=== PATIENT | female | born 1955 | race Caucasian/White ===

== ENCOUNTER → 2024-11-10 06:54 | Outpatient (REF) | payer MEDICARE, OTHER, SELFPAY | LOC: MRI 3T 06:54 | PROVIDERS: ATTENDING PHYSICIAN Physician Assistant | DX: M54.16 Radiculopathy, lumbar region (principal) | CPT/HCPCS: 72148 ==

== ENCOUNTER 2025-02-22 02:20 | Inpatient (IN) | payer MEDICARE, OTHER, SELFPAY ==
[2025-02-21 18:01] VITALS: BP 155/85
[2025-02-21 21:01] LABS: % Basophils 0.5 % (0-2); % Immature Granulocytes 0.6 % (0-0.5); % Lymphocytes 4.2 % (20.5-51.1); % Monocytes 4.6 % (1.7-9.3); % Neutrophils 90.1 % (42.2-75.2); Absolute Basophils 0.1 10^3/uL (0-0.2); Absolute Immature Granulocytes 0.1 10^3/uL (0-0.05); Absolute Lymphocytes 0.4 10^3/uL (1.2-3.4); Absolute Monocytes 0.5 10^3/uL (0.1-0.6); Absolute Neutrophils 9.2 10^3/uL (1.4-6.5); Hematocrit 44.1 % (37.0-47.0); Hemoglobin 14.6 g/dL (12.0-16.0); Mean Corp Hgb Conc. 33.1 g/dL (33.0-37.0); Mean Corpuscular Hgb 30.9 pg (27.0-31.0); Mean Corpuscular Volume 93.2 fL (81.0-99.0); Mean Platelet Volume 9.7 fL (7.4-10.4); Nucleated Red Blood Cells % 0 %; Platelet Count 266 10^3/uL (130-400); Red Blood Cell Count 4.73 10^6/uL (4.20-5.40); Red Cell Dist. Width 12.8 % (11.5-14.5); White Blood Cell Count 10.2 10^3/uL (4.8-10.8)
[2025-02-21 21:08] VITALS: BP 159/78
[2025-02-21 21:09] VITALS: BMI 22.6
[2025-02-21 21:17] LABS: Lactic Acid 1.5 mmol/L (0.7-2.0); Lipase 19 U/L (23-300)
[2025-02-21 21:18] LABS: ALT (SGPT) 26 U/L (0-35); AST (SGOT) 27 U/L (14-36); Albumin 4.8 g/dl (3.5-5.0); Alkaline Phosphatase 111 U/L (38-126); Blood Urea Nitrogen 23 mg/dl (7-17); Calcium 10.1 mg/dl (8.4-10.2); Carbon Dioxide 29 mmol/L (22-30); Chloride 105 mmol/L (98-107); Estimated Creatinine Clearance 60 ml/min; Glucose 133 mg/dl (70-99); Sodium 140 mmol/L (135-145); Total Bilirubin 1.1 mg/dl (0.2-1.3); Total Protein 7.3 g/dl (6.3-8.2); eGFR > 60.00
--- NOTE | 2025-02-21 21:20 | ED.GENMED ---
History of Present Illness
General
Chief Complaint: Abdominal Pain
Source: patient
Exam Limitations: none
Time Seen by Provider: 02/21/25 21:02
Nursing documentation reviewed up to this point in time: agreed with
History of Present Illness
History of Present Illness:
This is a 69-year-old female with past medical history of hypertension, Crohn's disease, who presents emergency department today with concerns of left-sided abdominal pain. Patient reports that she has a history of multiple small bowel obstructions
in the past and reports that this feels very similar. Patient reports that she also had 2 episodes of vomiting as well. Patient reports that she has had around 10 bowel obstructions in the past and they have been due to that adhesions. Patient
denies any pelvic pain, any dysuria or hematuria. Patient denies any fevers or chills. She denies any diarrhea or constipation. She denies any recent travel outside the country. She denies any chest pain or shortness of breath. She denies any
dizziness or lightheadedness. 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 She has noted general surgery here and has had a colon resection in the past.
Past History
Past History
ED Past Medical History: HTN and Other (Crohn's disease)
ED Past Surgical History: Appendectomy, Bowel resection (Small bowel obstruction) and Gynecological (Infertility surgery)
Social History
Tobacco: Non-smoker
Alcohol: None
Personal:
Living: with family
Family History
Family History: Negative Diabetes, Hypertension, Early CAD, Asthma or Cancer
Review of Systems
Review of Systems
All Other Systems: ROS reviewed and negative except as documented in HPI and ROS
Phy Exam
Physical Exam
Physical Exam:
General: Patient is well appearing and in no acute distress; non-toxic
Skin: Warm and dry, no rashes or lesions
Head: Normocephalic, atraumatic
Eyes: Sclera non-icteric. EOMs intact.
Cardiac: Regular rate and rhythm, no murmurs
Peripheral Vascular: No lower extremity swelling or edema
Pulm: Normal respiratory effort, no wheezes, rales, rhonchi
Abdomen: Mild tenderness to palpation in the front of the abdomen with some guarding, no rebound tenderness
Musculoskeletal: Midline lower lumbar tenderness to palpation
Neuro: CN II-XII intact, no focal neurologic deficits.
Psychiatric: Appropriate mood and affect.
Course
Orders/Labs/Results
Orders:
Orders
02/21/25 18:06
Electrocardiogram (*1) Urgent
Reason for Study: Other
Other Reason for Exam: Possible Sepsis
EKG- Treatment ONCE
02/21/25 20:31
Complete Blood Count/With Diff Urgent
Comprehensive Metabolic Panel Urgent
Lactic Acid Stat
Lipase Stat
02/21/25 21:28
0.9% Sodium Chloride 250 ml [Nss] 250 ml IV BOLUS
Ketorolac [Toradol] 15 mg IV NOW STA
Ondansetron Injectable [Zofran] 4 mg IV NOW STA
02/21/25 21:29
CT Abd/pelvis W Iv Cont Urgent
Comment:
Reason For Exam: left sided abdominal pain
02/22/25 01:12
HYDROmorphone [Dilaudid] 0.5 mg IV NOW STA
02/22/25 01:47
Admit/Transfer Patient As Directed
Co-Sign Provider:
Level of Care: Inpatient admission
Assign to:: Medical/Surgical
Physician / Group: Ranjeet
Diagnosis: SBO
Reason for Hospitalization: SBO
Expected length of stay greater than two midnights?: Yes
ELOS- Estimated Length of Stay in days: 2
I certify the patient meets the requirements for IP care: Yes
Code Status As Directed
Resuscitation Status: Full Code
PRN Pain Medication Management As Directed
May give lesser potent ordered pain med per pt: Yes
preference::
Protocol:: Medication orders for pain may be administered in a
manner that supports deferring to patient preference
when the pt is:
- Requesting an ordered lesser potent pain medication.
Least to most potent pain medications are defined
as: acetaminophen < NSAID < tramadol < opioids
(morphine, oxycodone, hydromorphone).
- Requesting a lesser dose of the same medication IF
ORDERED.
- Requesting a less intrusive route of administration
if both routes are prescribed by the provider (PO <
IV).
02/22/25 03:02
0.9% Sodium Chloride 1000 ml [Nss] 1,000 ml IV 80 mls/hr
HYDROmorphone [Dilaudid] 0.5 mg IV Q4HPRN PRN
HydrALAZINE [Apresoline] 5 mg IV Q6HPRN PRN
Ondansetron Injectable [Zofran] 4 mg IV Q6HPRN PRN
02/22/25 03:02
SURGICAL CONSULT Routine
Consulting Provider: Jericho Hansen
Was physician already notified: Yes
Reason for consult: SBO
Activity As Directed
Activity Level: Ambulate
I/O [Intake/ Output] As Directed
Frequency: Per unit guidelines
Pneumatic Compression Sleeves As Directed
Type: Knee high
Vital Signs As Directed
Frequency: Per unit guidelines
Oxygen Therapy [O2 Therapy] [RESP] Routine
Titrate/Wean O2 to maintain O2 sat greater than (%): 94
DX Deep Vein Thrombosis Video Routine
02/22/25 05:48
Basic Metabolic Panel IN AM
Complete Blood Count/No Diff IN AM
02/22/25 Breakfast
NPO
Allow oral meds: Yes
Allow clear liquids: Sips of Clears
02/22/25 08:00
Pantoprazole [Protonix IV] 40 mg IV DAILY
Abnormal Lab Results
02/21/25
20:31
Abs Immat Gran (auto) 0.1 H 10^3/uL
(0-0.05)
Absolute Neuts (auto) 9.2 H 10^3/uL
(1.4-6.5)
Absolute Lymphs (auto) 0.4 L 10^3/uL
(1.2-3.4)
Immature Gran % 0.6 H %
(0-0.5)
Neutrophils % 90.1 H %
(42.2-75.2)
Lymphocytes % 4.2 L %
(20.5-51.1)
BUN 23 H mg/dl
(7-17)
Glucose 133 H mg/dl
(70-99)
Lipase 19 L U/L
(23-300)
02/21/25 20:31
02/21/25 20:31
Vital Signs
Initial and Last Documented VS:
Initial Vital Signs
Temp Pulse Resp BP Pulse Ox
97.9 F 85 18 155/85 98
02/21/25 18:01 02/21/25 18:01 02/21/25 18:01 02/21/25 18:01 02/21/25 18:01
Last Documented Vital Signs
Temp Pulse Resp BP Pulse Ox
98.0 F 77 18 119/59 93
02/22/25 07:20 02/22/25 07:20 02/22/25 07:20 02/22/25 07:20 02/22/25 07:20
MDM/Problems Addressed
Differential Diagnosis Includes:
ddx include SBO, diverticulitis, gastritis,
MDM/Problems Addressed:
69 y/o female presents today with abdominal pain. nausea, and vomiting. She has a long history of SBO and states this feels similar. CT scan today reveals SBO. No indication for NG tube at this time. Surgery made aware. Case discussed with
hospitalist for admission.
Chronic conditions affecting care:
HTN, crohn's disease
*Critical Care Note
Total Time (30-74mins, 75-104mins- exclusive of procedures): Not Applicable
ED Attending Note
-
Portions of this chart may have been created with voice recognition software.� Occasional wrong word or��sound alike� substitutions may have occurred due to the inherent limitations of voice recognition software.
Discharge Plan
Departure
Patient Disposition: Admit
Date of Disposition: 02/22/25
Time of Disposition: 00:49
Admit to: Med/Surg
Presentation/result/management discussed w/ accepting MD/DO: Hospitalist
Patient with high blood pressure during this ER visit?: Yes
Condition: Fair
Discharge Problem:
Small bowel obstruction
Interventions
Interventions:
*Risk Screen - Suicide Last Done: 02/21/25 18:01
*General Assessment Last Done: 02/21/25 21:12
*Neglect/Abuse Screening Last Done: 02/21/25 18:01
*ED- Fall Risk Assessment Last Done: 02/21/25 21:12
*ED COVID-19 Vaccine History Last Done: 02/21/25 21:12
*Nursing Disposition Last Done: 02/22/25 02:54
UE-Rgrboi-Kumojyon[facility] Assessment Last Done: 02/21/25 21:10
Discharge Date and Time
Discharge Date/Time: 02/22/25 02:55
[2025-02-21] MEDS: NSS 250 IV (21:46)
[2025-02-21] MEDS: ZOFRAN 4 MG IV (21:47)
[2025-02-21] MEDS: TORADOL 15 MG IV (21:47)
[2025-02-21 22:00] VITALS: BP 163/85
[2025-02-22] VITALS (9 sets, daily range): BP systolic 119–185; BP diastolic 59–91; BMI 22.3
[2025-02-22] MEDS: DILAUDID 0.5 MG IV ×4 (01:24→20:07)
--- NOTE | 2025-02-22 01:49 | HPS.HSE ---
Family Physician
-
Family Physician: * NONE
Chief Complaint
-
Abd Pain, N/V
History of Present Illness
Patient is a 69y F with PMH significant for Crohn's disease and recurrent SBO who presents to ED complaining of abdominal pain and N/V. Patient states that her symptoms started around 10AM today. She notes pain in the epigastric region. N/V x
3 episodes of non-bloody emesis this afternoon. Her last episode of emesis was here in the ED. Patient states that she had a normal BM this AM prior to onset of these symptoms. She is not sure if she has passed any flatus since that time.
Patient reports prior history of similar symptoms. She underwent ex lap for SBO in 2011 and was found to have area of perforation / matted small bowel. Pathology was consistent with Crohn's disease - though she denies any other symptoms of Crohn's
including bloody diarrhea, mucousy stools, etc. She does not follow with GI nor take any medications for Crohn's.
Medical History
Past Medical History
Past Medical History: Reports Other
Additional Past Medical History:
Crohn's Disease
Recurrent SBO
Hypertension
Past Surgical History: Reports Other
Additional Past Surgical History:
Ex Lap x Multiple (Endometriosis / Fertility)
Appendectomy
Ex Lap with Ileocectomy (2011)
Social History
Tobacco: Former Smoker (Quit smoking 35 years ago.)
Alcohol: Occasional
Drug: None
Family History
Family History: Not pertinent
Allergies / Home Medications
Allergies reflects when Allergies were last updated in [facility].
Home Medications with original date entered in [employer] [facility]
Allergy/Medication List:
Allergies
Allergy/AdvReac Type Severity Reaction Status Date / Time
No Known Allergies Allergy Verified 02/21/25 18:01
Home Medications
No Meds [No Current Medications] 02/22/25
Review of Systems
-
History Source: Patient
A 12 point ROS was completed and negative except as noted: Yes
Constitutional: Denies Fever or Chills
Respiratory: Denies Cough or Trouble Breathing
Cardiac: Denies Chest Pain or Palpitations
Abdomen/GI: Reports Abdominal Pain, Nausea and Vomiting; Denies Diarrhea, Constipated, Bloody Stools or Black Stools
: Denies Dysuria or Frequency
Musculoskeletal: Denies Joint Pain or Edema
Neurological: Denies Dizzy or Headache
Psych: Denies Depression or Anxiety
Physical Exam
Vital Signs
Vital Signs
Temp Pulse Resp BP Pulse Ox
97.9 F 85 18 163/85 92
02/21/25 18:01 02/21/25 18:01 02/21/25 18:01 02/21/25 22:00 02/21/25 21:26
Physical Exam
General: Other (69y F in no acute distress.)
HEENT: Moist mucous membranes and PERRLA
Respiratory: Clear; No Wheezes, Rales or Rhonchi
Cardiac: S1/S2 and Regular Rhythm; No Murmur
GI: Other (Abdomen is soft and not distended. Pos bowel sounds. Tenderness appreciated in the RLQ and epigastric areas.)
Musculoskeletal: No Clubbing, No Cyanosis and No Edema
Neuro: AO x 3
Laboratory Results
-
02/21/25 20:31
02/21/25 20:31
Laboratory Results
Lactic Acid 1.5 mmol/L (0.7-2.0) 02/21/25 20:31
Total Bilirubin 1.1 mg/dl (0.2-1.3) 02/21/25 20:31
AST 27 U/L (14-36) 02/21/25 20:31
ALT 26 U/L (0-35) 02/21/25 20:31
Alkaline Phosphatase 111 U/L (38-126) 02/21/25 20:31
Lipase 19 U/L (23-300) L 02/21/25 20:31
Impression/Plan
-
A/P: Patient is a 69y F with PMH significant or Crohn's disease and prior SBO who presents to ED complaining of abdominal pain and N/V since 10 AM today.
SBO
- Admit for further evaluation and treatment.
- CT scan in the ED shows dilated loops of small bowel with apparent transition point in the central pelvis.
- NPO, IVFs, supportive care.
- Consider NG decompression if increased pain and recurrent emesis.
- Surgery evaluation for additional recommendations.
- Follow for improvement in symptoms, flatus / BM, etc.
Crohn's Disease
- No active symptoms now (nor previously).
- Diagnosis occurred based on pathology from prior SBO episode requiring ex lap / SBR.
- Patient on no treatment for Crohn's at present.
Benign Hypertension
- Patient reports known history of HTN but is on no current medications.
- Pursue adequate pain / symptom control.
- IV hydralazine as needed fro high BP for now.
- Consider initiation of oral regimen once able to take POs.
DVT Prophylaxis: SCDs
Code Status: Full
[2025-02-22] MEDS: ZOFRAN 4 MG IV ×3 (03:29→15:57)
[2025-02-22] MEDS: NSS 1000 IV ×2 (03:53→15:02)
[2025-02-22 07:55] LABS: Hematocrit 42.1 % (37.0-47.0); Mean Corp Hgb Conc. 33.3 g/dL (33.0-37.0); Mean Corpuscular Hgb 31.3 pg (27.0-31.0); Mean Platelet Volume 10.4 fL (7.4-10.4); Platelet Count 251 10^3/uL (130-400); Red Blood Cell Count 4.48 10^6/uL (4.20-5.40); Red Cell Dist. Width 13.1 % (11.5-14.5); White Blood Cell Count 11.5 10^3/uL (4.8-10.8)
[2025-02-22] MEDS: PROTONIX IV 40 MG IV (08:08)
[2025-02-22] MEDS: NSS (PRESERVATIVE FREE) 10 ML IV (08:08)
[2025-02-22 08:12] LABS: Blood Urea Nitrogen 23 mg/dl (7-17); Calcium 9.4 mg/dl (8.4-10.2); Carbon Dioxide 27 mmol/L (22-30); Chloride 106 mmol/L (98-107); Estimated Creatinine Clearance 52 ml/min; Glucose 111 mg/dl (70-99); Potassium 4.4 mmol/L (3.5-5.1); Sodium 141 mmol/L (135-145); eGFR > 60.00
--- NOTE | 2025-02-22 12:35 | W.PN.HOSP.TC ---
Today's Communication/Plan
-
NPO
IVF
Ambulate
Assessment / Plan
Assessment / Plan
69-year-old female with Abd pain , nausea and vomiting
CT mixm-ltw-ewlav-distended loops of small bowel in the left abdomen measuring up to 3.7 cm containing fecalized content and mild mesenteric fat stranding compatible with small bowel obstruction. Transition point in the central pelvis. Possibly
due to ideations. Decompressed loops of distal small bowel in the right lower quadrant. Small to moderate fat-containing umbilical hernia. Hepatic steatosis. Mildly distended gallbladder with no gallbladder wall thickening or biliary
dilatation. Increasing multiple cystic lesions throughout the pancreas including pancreatic head uncinate process, body and tail and probable mild dilatation of the main pancreatic duct. This may be related to main and sidebranch IPMN's suggest
correlation with MRCP. Subcentimeter bilateral renal cysts. No hydro nephrosis or calculi. Bladder is normal. Uterus and ovaries are unremarkable. Lung bases are clear.
Patient is awake alert pleasant
Cardiovascular system S1-S2 appreciated
Chest clear to auscultation
Abdomen soft very diminished bowel sounds
# SBO
May be caused by Chron's , also has history of colon resection with ileal cecal anastomosis
CT abdomen and pelvis-dilated loops of the small bowel with transition point in the central pelvis.
Continue NPO, IVFs
NG tube decompression of the patient has vomiting-discussed with the patient
Surgery consultation
# Crohn's Disease
Diagnosed from small bowel resection after an episode of SBO
Patient had an episode of small bowel obstruction in 2018 was admitted here. During that episode she was advised to follow-up with Dr. Elliott to get MR enterography and see if she needed any maintenance therapy.
Not on any treatment for Chron's by patient preference as she thinks her Crohn's is not active
I could not find any later colonoscopies since 2011 she confirms that she has not had one since then-
Discussed with the patient regarding high risk for malignancy with IBD.
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 She is afraid of ever being put in a alf when she gets older.
# HTN- Not on meds as OP
Watch BP and start meds as needed
Follow blood pressures. I discussed that we may need to start medicines if pressure runs high.
On PRN Hydralazine now
# Multiple pancreatic cystic lesions-needs further workup with MRI/MRCP and GI follow-up
# Ex-smoker
# DVT Prophylaxis- SCDS and Lovenox
# Full CODE
Part of this note was created using voice recognition system. Occasional wrong word or��sound alike� substitutions may have inadvertently occurred due to the inherent limitations of voice recognition software. If noted kindly bring it to my
attention for correction.
Anticipated Discharge: > 48 hours
Subjective/Interval History
-
Date of Service: February 22, 2025
Objective Data
-
Labs:
Laboratory Results
02/22/25
05:48
WBC 11.5 H
Hgb 14.0
Hct 42.1
Plt Count 251
Sodium 141
Potassium 4.4
Chloride 106
Carbon Dioxide 27
BUN 23 H
Creatinine 0.8
Glucose 111 H
Calcium 9.4
Vital Signs:
Vital Signs
Temp Pulse Resp BP Pulse Ox
98.0 F 77 18 119/59 93
02/22/25 07:20 02/22/25 07:20 02/22/25 07:20 02/22/25 07:20 02/22/25 07:20
--- NOTE | 2025-02-22 14:46 | CON.GS ---
Addendum entered and electronically signed by Jericho Hansen MD 02/22/25 15:11:
Patient seen and examined.
Patient is a 69 yo F with a PMH of endometriosis s/p multiple ex lap's and management/fertility, s/p appendectomy and SBO s/p ex lap with [place]ocece[place] [address] Doty. Ms. Pepper reports with 24 hours of abdominal discomfort, nausea,
vomiting. She reports that her symptoms began after eating large amount of coconut. No flatus or stools since yesterday morning. No fevers or chills. Currently she feels somewhat improved and denies any nausea. Of note, pathology at the time of
her ileocecectomy was positive for Crohn's. She does not follow with a GI physician or get actively treated for Crohn's.
Gen: NAD
Abd: soft, NT, minimal distension, non-peritoneal, prior incisions well healed, palpable reducible incisional hernia, soft, non-tender
Labs and CT scan imaging reviewed
Patient is a 69 yo F p/w SBO secondary to dietary indiscretion in the setting of adhesive disease and potentially Crohn's related stricture
No clinical or radiographic signs concerning for ischemia or perforation. No plan for surgical intervention at this time. Recommend trial medical management with bowel rest and IV fluids. If no improvement over the next 24 to 48 hours would
recommend a contrasted imaging study. Expect that she will clinically improve as her fluid bolus resolves. Patient has expressed no interest in medical management or follow-up for her Crohn's disease.
-- No plans for surgery
-- NPO, IVF
-- SBFT study if no improvement
-- OOB, correct lytes, minimize narcotics
Original Note:
Consultation
-
Date/Time Consultation Performed: 02/22/25 1400
Medical History
-
Chief Complaint: ABD pain
History of Present Illness:
Ms Pepper is a 69 yo female with a h/o endometriosis s/p multiple ex laps in management/fertility, appendectomy and ex lap with ileocecectomy in 2011 with bx positive for Crohn's for bowel obstruction with subsequent SBO in 2018 which resolved
without surgery who presented overnight with abdominal pain, nausea and vomiting after eating a large amount of coconut. She had multiple episodes of nonbloody emesis yesterday but denies active nausea or recent vomiting currently. She was having
cramping abdominal pain earlier this afternoon but notes that IV analgesics have effectively relieved her pain. She has not been passing flatus or stools since yesterday morning. She denies fevers or chills. Prior to this episode she denies diarrhea
or GI discomfort.
Past Medical History
Past Medical History: HTN and Other (Crohn's (not on active treatment) last colonoscopy 2011, pancreatic cysts)
Past Surgical History: Appendectomy, Bowel Resection (ileocecectomy 2011) and Gynecological (multiple ex laps for endometriosis management/fertility)
Social History
Tobacco: Former Smoker
Alcohol: Occasional
Personal:
Living: With Family
Employment: Retired (RN)
Family History
Family History: Reviewed & Not Pertinent
Allergies / Home Medications
Allergy/AdvReac Type Severity Reaction Status Date / Time
No Known Allergies Allergy Verified 02/21/25 18:01
�Medication �Instructions �Recorded �Confirmed �Type
No Meds [No Current Medications] 02/22/25 02/22/25 History
Review of Systems
-
History Source: Patient
All other systems: Negative unless noted
A 10 point review of systems was completed, and was negative except as per HPI.
Physical Exam
Vital Signs
Temp Pulse Resp BP Pulse Ox
98.0 F 77 18 119/59 93
02/22/25 07:20 02/22/25 07:20 02/22/25 07:20 02/22/25 07:20 02/22/25 07:20
02/21/25 02/22/25 02/23/25
06:59 06:59 06:59
Actual Weight 55.248 kg
Body Mass Index (BMI) 22.3
Lab Results
02/22/25 05:48
02/22/25 05:48
WBC 11.5 10^3/uL (4.8-10.8) H 02/22/25 05:48
Hgb 14.0 g/dL (12.0-16.0) 02/22/25 05:48
Hct 42.1 % (37.0-47.0) 02/22/25 05:48
Plt Count 251 10^3/uL (130-400) 02/22/25 05:48
Abs Immat Gran (auto) 0.1 10^3/uL (0-0.05) H 02/21/25 20:31
Neutrophils % 90.1 % (42.2-75.2) H 02/21/25 20:31
Physical Exam
General: Well Developed
HEENT: Moist Mucous Membranes
Respiratory: Non Labored Respirations
GI: Soft, Non Tender, Distended (mild) and Other (reducible incisional hernia)
Skin: Warm and Dry
Neuro: Awake, Alert and AO x 3
Psych: Calm
Data Reviewed
-
CT Scan: Image Personally Visualized and interpreted, Report Reviewed by me, Discussed with Physician and Discussed with Patient
Labs: Labs Reviewed by me, Discussed with Physician and Discussed with Patient
Old Records: Reviewed
Assessment / Plan
-
69 yo female with a h/o endometriosis s/p multiple ex laps in management/fertility, appendectomy and ex lap with ileocecectomy in 2012 with bx positive for Crohn's for bowel obstruction with subsequent SBO in 2018 which resolved without surgery who
presents with abd pain/n/v from home. CT imaging reviewed with SBO noted and transition point to the left hemiabdomen, suspect secondary to adhesions/dietary indiscretion. There is an incisional hernia present which is soft and reducible on exam.
AFVSS. Mild leukocytosis, mild elevation in CRP.
Plan:
Will follow with nonoperative measures at this time for improvement
Keep NPO for bowel rest with IVF for hydration. Analgesics/antiemetics as needed
Tentative SBFT study tomorrow if no improvement
Medical mangement as per primary team
[2025-02-22] MEDS: LOVENOX 40 MG SC (17:19)
[2025-02-23] MEDS: ZOFRAN 4 MG IV ×2 (01:05→20:23)
[2025-02-23] MEDS: DILAUDID 0.5 MG IV ×5 (01:13→20:24)
[2025-02-23] MEDS: NSS 1000 IV (03:34)
[2025-02-23 07:30] VITALS: BP 138/72
[2025-02-23 07:41] LABS: Blood Urea Nitrogen 22 mg/dl (7-17); Calcium 8.5 mg/dl (8.4-10.2); Carbon Dioxide 28 mmol/L (22-30); Chloride 109 mmol/L (98-107); Estimated Creatinine Clearance 60 ml/min; Glucose 128 mg/dl (70-99); Potassium 4.3 mmol/L (3.5-5.1); Sodium 139 mmol/L (135-145); eGFR > 60.00
[2025-02-23 07:44] LABS: Hematocrit 37.4 % (37.0-47.0); Mean Corp Hgb Conc. 32.1 g/dL (33.0-37.0); Mean Corpuscular Hgb 30.5 pg (27.0-31.0); Mean Corpuscular Volume 95.2 fL (81.0-99.0); Mean Platelet Volume 10.1 fL (7.4-10.4); Platelet Count 223 10^3/uL (130-400); Red Blood Cell Count 3.93 10^6/uL (4.20-5.40); Red Cell Dist. Width 13.1 % (11.5-14.5); White Blood Cell Count 2.8 10^3/uL (4.8-10.8)
[2025-02-23] MEDS: NSS (PRESERVATIVE FREE) 10 ML IV (08:55)
[2025-02-23] MEDS: PROTONIX IV 40 MG IV (08:55)
[2025-02-23] MEDS: D5LR 1000 IV (10:44)
--- NOTE | 2025-02-23 10:55 | W.PN.HOSP.TC ---
Today's Communication/Plan
-
IVF
NPO
Assessment / Plan
Assessment / Plan
69-year-old female with Abd pain , nausea and vomiting
CT ghkq-rvq-xaiph-distended loops of small bowel in the left abdomen measuring up to 3.7 cm containing fecalized content and mild mesenteric fat stranding compatible with small bowel obstruction. Transition point in the central pelvis. Possibly
due to ideations. Decompressed loops of distal small bowel in the right lower quadrant. Small to moderate fat-containing umbilical hernia. Hepatic steatosis. Mildly distended gallbladder with no gallbladder wall thickening or biliary
dilatation. Increasing multiple cystic lesions throughout the pancreas including pancreatic head uncinate process, body and tail and probable mild dilatation of the main pancreatic duct. This may be related to main and sidebranch IPMN's suggest
correlation with MRCP. Subcentimeter bilateral renal cysts. No hydro nephrosis or calculi. Bladder is normal. Uterus and ovaries are unremarkable. Lung bases are clear.
Patient is awake alert pleasant
Cardiovascular system S1-S2 appreciated
Chest clear to auscultation
Abdomen soft very diminished bowel sounds, but some appreciated.
# SBO
May be caused by Chron's , also has history of colon resection with ileal cecal anastomosis
CT abdomen and pelvis-dilated loops of the small bowel with transition point in the central pelvis.
Continue NPO, IVFs
NG tube decompression of the patient has vomiting-discussed with the patient
X-ray reviewed by me-still shows small bowel obstruction
Patient is ambulating in the halls
She does not want to get small bowel follow-through as it makes her sick
Surgery consultation
# Crohn's Disease
Diagnosed from small bowel resection after an episode of SBO
Patient had an episode of small bowel obstruction in 2018 was admitted here. During that episode she was advised to follow-up with Dr. Elliott to get MR enterography and see if she needed any maintenance therapy.
Not on any treatment for Chron's by patient preference as she thinks her Crohn's is not active
I could not find any later colonoscopies since 2011 she confirms that she has not had one since then-
Discussed with the patient regarding high risk for malignancy with IBD.
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 She is afraid of ever being put in a residential when she gets older.
# HTN- Not on meds as OP
Watch BP and start meds as needed
Follow blood pressures. I discussed that we may need to start medicines if pressure runs high.
On PRN Hydralazine now
# Multiple pancreatic cystic lesions-needs further workup with MRI/MRCP and GI follow-up, Pt and daughter aware.
# Ex-smoker
# DVT Prophylaxis- SCDS and Lovenox
# Full CODE
Discussed with nursing
Part of this note was created using voice recognition system. Occasional wrong word or��sound alike� substitutions may have inadvertently occurred due to the inherent limitations of voice recognition software. If noted kindly bring it to my
attention for correction.
Anticipated Discharge: 24 - 48 hours
Subjective/Interval History
-
Date of Service: February 23, 2025
Objective Data
-
Labs:
Laboratory Results
02/23/25
06:42
WBC 2.8 L
Hgb 12.0
Hct 37.4
Plt Count 223
Sodium 139
Potassium 4.3
Chloride 109 H
Carbon Dioxide 28
BUN 22 H
Creatinine 0.7
Glucose 128 H
Calcium 8.5
Vital Signs:
Vital Signs
Temp Pulse Resp BP Pulse Ox
98.6 F 81 16 138/72 93
02/23/25 07:30 02/23/25 07:30 02/23/25 07:30 02/23/25 07:30 02/23/25 07:30
I&O
05/02/23/25 02/24/25
06:59 06:59 06:59
Intake Total 960 / 960
Output Total 100 / 100
Balance 860 / 860
--- NOTE | 2025-02-23 11:15 | CM ---
Patient off the flr, spoke w/ spouse, initial assessment completed. Patient is a 69y F with PMH significant for Crohn's disease and recurrent SBO who presents to ED complaining of abdominal pain and N/V.
Patient resides w/ spouse and daughter, who is a MD, in a 2ST[facility]-1 step to enter. Patient is independent w/ ambulation and ADLs, no DME identified.
No SNF/HC hx reported. OP therapy in the past.
Address, point of contact and insurance verified
PCP: Patient does not have a PCP at this time. residency clinic information provided
Pharmacy: [facility]
Spouse requesting for daughter, Yessica, to be the primary contact as she is a doctor and would like for to be the one to communicate w/ the hospitalist. Updated contacts w/ admissions
Plan: Home, no needs anticipated
--- NOTE | 2025-02-23 12:13 | W.PN.GS2 ---
Today's Communication / Plan
-
NPO/IVF
Assessment / Plan
-
Patient is a 69 yo F p/w SBO secondary to dietary indiscretion in the setting of adhesive disease and potentially Crohn's related stricture
AFVSS
Mild leukopenia
XR with persistent obstruction
Declined SBFT today
-- Will follow for improvement with bowel rest/IVF
-- NPO, IVF
-- SBFT tomorrow if no improvement and patient agreeable to proceed
-- OOB, minimize narcotics
--Medical mangement as per primary team
Hopefully this will resolve without surgical intervention, will follow closely
Subjective Data
-
Date of Service: February 23, 2025
Patient seen and examined at bedside with Dr. Hernandez. Emesis x1 overnight, intermittent nausea and abdominal discomfort. Reports she feels more activity/gurgling today then before.
Objective Data
-
Intake and Output
02/22/25 02/23/25 02/24/25
06:59 06:59 06:59
Intake Total 960 / 960
Output Total 100 / 100
Balance 860 / 860
Intake:
Oral fluids 0 / 0
IV fluids (Total) 960 / 960
Output:
Urine, Voided 100 / 100
Other:
Number of approximated MODERATE 2
amounts of urine
Vital Signs
Temp Pulse Resp BP Pulse Ox
98.6 F 81 16 138/72 93
02/23/25 07:30 02/23/25 07:30 02/23/25 07:30 02/23/25 07:30 02/23/25 07:30
Lab Results
02/23/25 06:42
02/23/25 06:42
Calcium 8.5 mg/dl (8.4-10.2) 02/23/25 06:42
Total Bilirubin 1.1 mg/dl (0.2-1.3) 02/21/25 20:31
AST 27 U/L (14-36) 02/21/25 20:31
ALT 26 U/L (0-35) 02/21/25 20:31
Alkaline Phosphatase 111 U/L (38-126) 02/21/25 20:
Total Protein 7.3 g/dl (6.3-8.2) 02/21/25 20:31
Albumin 4.8 g/dl (3.5-5.0) 02/21/25 20:31
Physical Exam
-
NAD
ABD softly distended, generalized tenderness, day care provider
[2025-02-23 15:17] VITALS: BP 139/74
[2025-02-23] MEDS: LOVENOX 40 MG SC (17:18)
[2025-02-23 23:29] VITALS: BP 134/57
[2025-02-24] MEDS: OFIRMEV 100 IV (01:06)
[2025-02-24] MEDS: D5LR 1000 IV ×2 (01:25→13:25)
[2025-02-24] MEDS: DILAUDID 0.5 MG IV ×3 (04:07→13:25)
[2025-02-24 06:53] LABS: Hematocrit 38.1 % (37.0-47.0); Hemoglobin 12.3 g/dL (12.0-16.0); Mean Corp Hgb Conc. 32.3 g/dL (33.0-37.0); Mean Corpuscular Hgb 30.4 pg (27.0-31.0); Mean Corpuscular Volume 94.1 fL (81.0-99.0); Mean Platelet Volume 10.1 fL (7.4-10.4); Platelet Count 253 10^3/uL (130-400); Red Blood Cell Count 4.05 10^6/uL (4.20-5.40); Red Cell Dist. Width 12.8 % (11.5-14.5); White Blood Cell Count 3.6 10^3/uL (4.8-10.8)
[2025-02-24 07:22] LABS: Blood Urea Nitrogen 14 mg/dl (7-17); Calcium 8.4 mg/dl (8.4-10.2); Carbon Dioxide 28 mmol/L (22-30); Chloride 106 mmol/L (98-107); Estimated Creatinine Clearance 60 ml/min; Glucose 135 mg/dl (70-99); Potassium 4.1 mmol/L (3.5-5.1); Sodium 139 mmol/L (135-145); eGFR > 60.00
--- NOTE | 2025-02-24 07:37 | W.PN.GS2 ---
Today's Communication / Plan
-
-- SBFT
Assessment / Plan
-
Patient is a 69 yo F p/w SBO secondary to dietary indiscretion in the setting of adhesive disease and potentially Crohn's related stricture
AFVSS
Mild leukopenia
XR with persistent obstruction
Discussed options for management. Recommend SBFT given no clinical improvement over the past 24 to 48 hours both for diagnostic and therapeutic benefit. We discussed placement of NGT both for alleviating some of her bloating as well as
administration of the contrast versus proceeding with study without the NGT. Pros and cons, risks and benefits of both approaches was discussed. Patient would like to proceed with SBFT. If any symptoms throughout the morning we will place NGT.
-- SBFT
-- NGT if symptoms, ordered
-- NPO, IVF
-- OOB, minimize narcotics, correct lytes
-- Medical management as per primary team
Subjective Data
-
Date of Service: February 24, 2025
No improvement, though no worsening of symptoms. Denies significant abdominal pain. Experiences some crampy abdominal discomfort with walking. No nausea or vomiting. No flatus or BM. Afebrile.
Objective Data
-
Intake and Output
02/23/25 02/24/25 02/25/25
06:59 06:59 06:59
Intake Total 960 / 960
Output Total 100 / 100
Balance 860 / 860
Intake:
Oral fluids 0 / 0
IV fluids (Total) 960 / 960
Output:
Urine, Voided 100 / 100
Other:
Number of approximated MODERATE 2
amounts of urine
Vital Signs
Temp Pulse Resp BP Pulse Ox
98.1 F 83 17 134/57 93
02/23/25 23:29 02/23/25 23:29 02/23/25 23:29 02/23/25 23:29 02/23/25 23:29
Lab Results
02/24/25 06:03
02/24/25 06:03
Calcium 8.4 mg/dl (8.4-10.2) 02/24/25 06:03
Total Bilirubin 1.1 mg/dl (0.2-1.3) 02/21/25 20:31
AST 27 U/L (14-36) 02/21/25 20:31
ALT 26 U/L (0-35) 02/21/25 20:31
Alkaline Phosphatase 111 U/L (38-126) 02/21/25 20:31
Total Protein 7.3 g/dl (6.3-8.2) 02/21/25 20:31
Albumin 4.8 g/dl (3.5-5.0) 02/21/25 20:31
Physical Exam
-
Gen: NAD
Abd: soft, mild tenderness, moderate distension, non-peritoneal
Patient has a vargas catheter: No
Patient has a central line: No
[2025-02-24 07:50] VITALS: BP 151/73
--- NOTE | 2025-02-24 08:02 | PTCARENOTE ---
MD Hansen at bedside this morning notified this RN of NGT order. stated to place NGT only if pt symptoms worsening, increased bloating, or for assistance in administration of the contrast if needed. Pt appears to be comfortable at this time
during rounds. Call newberry within reach.
[2025-02-24] MEDS: NSS (PRESERVATIVE FREE) 10 ML IV (09:24)
[2025-02-24] MEDS: PROTONIX IV 40 MG IV (09:24)
[2025-02-24] MEDS: TORADOL 10 MG IV ×2 (10:34→16:17)
[2025-02-24] MEDS: ZOFRAN 4 MG IV (10:34)
[2025-02-24] MEDS: NSS (PRESERVATIVE FREE) 8 ML IV (14:24)
[2025-02-24] MEDS: PEPCID 20 MG IV (14:24)
--- NOTE | 2025-02-24 14:31 | W.PN.HOSP.TC ---
Today's Communication/Plan
-
SBFT
NPO
IVF
Assessment / Plan
Assessment / Plan
69-year-old female with Abd pain , nausea and vomiting
CT npdd-[id number]-distended loops of small bowel in the left abdomen measuring up to 3.7 cm containing fecalized content and mild mesenteric fat stranding compatible with small bowel obstruction. Transition point in the central pelvis. Possibly
due to ideations. Decompressed loops of distal small bowel in the right lower quadrant. Small to moderate fat-containing umbilical hernia. Hepatic steatosis. Mildly distended gallbladder with no gallbladder wall thickening or biliary
dilatation. Increasing multiple cystic lesions throughout the pancreas including pancreatic head uncinate process, body and tail and probable mild dilatation of the main pancreatic duct. This may be related to main and sidebranch IPMN's suggest
correlation with MRCP. Subcentimeter bilateral renal cysts. No hydro nephrosis or calculi. Bladder is normal. Uterus and ovaries are unremarkable. Lung bases are clear.
Patient is awake alert pleasant
Cardiovascular system S1-S2 appreciated
Chest clear to auscultation
Abdomen soft very diminished bowel sounds, but appreciated.
# SBO
May be caused by Chron's , also has history of colon resection with ileal cecal anastomosis
CT abdomen and pelvis-dilated loops of the small bowel with transition point in the central pelvis.
Continue NPO, IVFs
Not passing flatus
NG tube decompression of the patient has vomiting-discussed with the patient
Small bowel follow-through on 02/24/2025-results pending
# Crohn's Disease
Diagnosed from small bowel resection after an episode of SBO
Patient had an episode of small bowel obstruction in 2018 was admitted here. During that episode she was advised to follow-up with Dr. Elliott to get MR enterography and see if she needed any maintenance therapy.
Not on any treatment for Chron's by patient preference as she thinks her Crohn's is not active
I could not find any later colonoscopies since 2011 she confirms that she has not had one since then-
Discussed with the patient regarding high risk for malignancy with IBD.
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 She is afraid of ever being put in a half-way when she gets older.
# HTN- Not on meds as OP
Watch BP and start meds as needed
Follow blood pressures. I discussed that we may need to start medicines if pressure runs high.
Slightly borderline high
Possible related to pain also
On PRN Hydralazine now
# Multiple pancreatic cystic lesions-needs further workup with MRI/MRCP and GI follow-up, Pt and daughter aware.
# Ex-smoker
# DVT Prophylaxis- SCDS and Lovenox
# Full CODE
Discussed with nursing
Part of this note was created using voice recognition system. Occasional wrong word or��sound alike� substitutions may have inadvertently occurred due to the inherent limitations of voice recognition software. If noted kindly bring it to my
attention for correction.
Anticipated Discharge: > 48 hours
Subjective/Interval History
-
Date of Service: February 24, 2025
Objective Data
-
Labs:
Laboratory Results
02/24/25
06:03
WBC 3.6 L
Hgb 12.3
Hct 38.1
Plt Count 253
Sodium 139
Potassium 4.1
Chloride 106
Carbon Dioxide 28
BUN 14
Creatinine 0.7
Glucose 135 H
Calcium 8.4
Vital Signs:
Vital Signs
Temp Pulse Resp BP Pulse Ox
98.4 F 79 17 151/73 94
02/24/25 07:50 02/24/25 07:50 02/24/25 07:50 02/24/25 07:50 02/24/25 07:50
I&O
02/23/25 02/24/25 02/25/25
06:59 06:59 06:59
Intake Total 960 / 960
Output Total 100 / 100
Balance 860 / 860
[2025-02-24 15:50] VITALS: BP 197/94
--- NOTE | 2025-02-24 16:00 | PTCARENOTE ---
Pt returned from xray after receiving oral contrast feeling 'sick'. This RN assisted pt to bathroom and pt had emesis episode x3 brown/green liquid. This RN stated that NGT may benefit pt at this time but Pt states she 'wants to hold off on the NGT
for now and see how she does'. MD Hansen & MD Mcknight notified. New order for antiemetic given & pain medications as ordered. Call newberry within reach.
[2025-02-24] MEDS: APRESOLINE 5 MG IV (16:14)
[2025-02-24] MEDS: COMPAZINE 10 MG IV (16:27)
--- NOTE | 2025-02-24 17:30 | PTCARENOTE ---
This RN in to assess pt and pt stated she was feeling much better and that her N/V had resolved at this time and pt states feeling comfortable at this time. Call newberry within reach. Pt offers no complaints at this time.
[2025-02-24] MEDS: LOVENOX 40 MG SC (18:43)
[2025-02-24 19:30] VITALS: BP 140/70
--- NOTE | 2025-02-24 19:52 | PTCARENOTE ---
Pt reporting multiple loose BM , RN assessed yellow/brown watery. Pt educated on informing RN of BM and do not flush until assessed. Pt denies any nausea and emesis @ this time, resting in bed. Call newberry within reach
[2025-02-24 23:43] VITALS: BP 130/67
[2025-02-25] MEDS: D5LR 1000 IV ×2 (05:08→18:05)
[2025-02-25 06:57] LABS: Blood Urea Nitrogen 16 mg/dl (7-17); Calcium 8.1 mg/dl (8.4-10.2); Carbon Dioxide 30 mmol/L (22-30); Chloride 108 mmol/L (98-107); Estimated Creatinine Clearance 60 ml/min; Glucose 113 mg/dl (70-99); Potassium 3.8 mmol/L (3.5-5.1); Sodium 142 mmol/L (135-145); eGFR > 60.00
[2025-02-25 07:25] VITALS: BP 143/78
[2025-02-25 07:37] LABS: Hematocrit 33.6 % (37.0-47.0); Hemoglobin 10.9 g/dL (12.0-16.0); Mean Corp Hgb Conc. 32.4 g/dL (33.0-37.0); Mean Corpuscular Hgb 30.6 pg (27.0-31.0); Mean Corpuscular Volume 94.4 fL (81.0-99.0); Mean Platelet Volume 10.4 fL (7.4-10.4); Platelet Count 202 10^3/uL (130-400); Red Blood Cell Count 3.56 10^6/uL (4.20-5.40); Red Cell Dist. Width 12.8 % (11.5-14.5); White Blood Cell Count 3.5 10^3/uL (4.8-10.8)
[2025-02-25] MEDS: NSS (PRESERVATIVE FREE) 10 ML IV (08:21)
[2025-02-25] MEDS: PROTONIX IV 40 MG IV (08:21)
--- NOTE | 2025-02-25 10:15 | W.PN.GS2 ---
Today's Communication / Plan
-
CLD
Assessment / Plan
-
Patient is a 69 yo F p/w SBO secondary to dietary indiscretion in the setting of adhesive disease and potentially Crohn's related stricture
AFVSS, clinically improved with resolution of pain and nausea and passage of flatus + BM
Mild leukopenia
XR with persistent obstruction
SBFT 02/25 contrast rermains in mildly dilated sb after 4 hrs
KUB 02/25 contast all in colon and sb distention improved
Discussed Crohns, she is not interested in tx. Discussed the importance of screening c-scopes not only for Crohns but for colon cancer as well, she is not interested in getting a c-scope.
-- Trial CLD
-- Cont IVF until adequate PO intake
-- OOB, minimize narcotics, correct lytes
-- Medical management as per primary team
Subjective Data
-
Date of Service: February 25, 2025
Clinically improved, pain totally resolved, denies nausea, passing BM and flatus
Objective Data
-
Intake and Output
02/24/25 02/25/25 02/26/25
06:59 06:59 06:59
Intake Total 1140 / 1140
Balance 1140 / 1140
Intake:
Oral fluids 240 / 240
IV fluids (Total) 900 / 900
Other:
Number of approximated MODERATE 2
amounts of urine
Vital Signs
Temp Pulse Resp BP Pulse Ox
98.4 F 80 16 143/78 95
02/25/25 07:25 02/25/25 07:25 02/25/25 07:25 02/25/25 07:25 02/25/25 07:25
Lab Results
02/25/25 05:20
02/25/25 05:20
Calcium 8.1 mg/dl (8.4-10.2) L 02/25/25 05:20
Total Bilirubin 1.1 mg/dl (0.2-1.3) 02/21/25 20:31
AST 27 U/L (14-36) 02/21/25 20:31
ALT 26 U/L (0-35) 02/21/25 20:31
Alkaline Phosphatase 111 U/L (38-126) 02/21/25 20:31
Total Protein 7.3 g/dl (6.3-8.2) 02/21/25 20:31
Albumin 4.8 g/dl (3.5-5.0) 02/21/25 20:31
Physical Exam
-
Gen: NAd
Abd: soft, mild diffuse distention and ttp
Patient has a vargas catheter: No
Patient has a central line: No
--- NOTE | 2025-02-25 11:22 | W.PN.HOSP.TC ---
Today's Communication/Plan
-
SBO seems to have been resolving.
Clear liquid diet
Advance per surgeon
Assessment / Plan
Assessment / Plan
69-year-old female with Abd pain , nausea and vomiting
CT eznn-mqj-clzpp-distended loops of small bowel in the left abdomen measuring up to 3.7 cm containing fecalized content and mild mesenteric fat stranding compatible with small bowel obstruction. Transition point in the central pelvis. Possibly
due to ideations. Decompressed loops of distal small bowel in the right lower quadrant. Small to moderate fat-containing umbilical hernia. Hepatic steatosis. Mildly distended gallbladder with no gallbladder wall thickening or biliary
dilatation. Increasing multiple cystic lesions throughout the pancreas including pancreatic head uncinate process, body and tail and probable mild dilatation of the main pancreatic duct. This may be related to main and sidebranch IPMN's suggest
correlation with MRCP. Subcentimeter bilateral renal cysts. No hydro nephrosis or calculi. Bladder is normal. Uterus and ovaries are unremarkable. Lung bases are clear.
Patient is awake alert pleasant
Cardiovascular system S1-S2 appreciated
Chest clear to auscultation
Abdomen soft -bowel sounds appreciated
Patient had bowel movements last night and this morning
# SBO
May be caused by Chron's , also has history of colon resection with ileal cecal anastomosis
CT abdomen and pelvis-dilated loops of the small bowel with transition point in the central pelvis.
X-ray 02/25/2025-reviewed by me-contrast has passed into the colon
Start clear liquid diet
# Crohn's Disease
Diagnosed from small bowel resection after an episode of SBO
Patient had an episode of small bowel obstruction in 2018 was admitted here. During that episode she was advised to follow-up with Dr. Elliott to get MR enterography and see if she needed any maintenance therapy.
Not on any treatment for Chron's by patient preference as she thinks her Crohn's is not active
I could not find any later colonoscopies since 2011 she confirms that she has not had one since then-
Discussed with the patient regarding high risk for malignancy with IBD.
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 She is afraid of ever being put in a long term when she gets older.
# HTN- Not on meds as OP
Watch BP and start meds as needed
On PRN Hydralazine now
Pressures have been mostly stable
# Multiple pancreatic cystic lesions-needs further workup with MRI/MRCP and GI follow-up, Pt and daughter aware.
# Ex-smoker
# DVT Prophylaxis- SCDS and Lovenox
# Full CODE
Discussed with nursing
Discussed with surgeon
Part of this note was created using voice recognition system. Occasional wrong word or��sound alike� substitutions may have inadvertently occurred due to the inherent limitations of voice recognition software. If noted kindly bring it to my
attention for correction.
Anticipated Discharge: Within 24 hours
Subjective/Interval History
-
Date of Service: February 25, 2025
Objective Data
-
Labs:
Laboratory Results
02/25/25
05:20
WBC 3.5 L
Hgb 10.9 L
Hct 33.6 L
Plt Count 202 D
Sodium 142
Potassium 3.8
Chloride 108 H
Carbon Dioxide 30
BUN 16
Creatinine 0.7
Glucose 113 H
Calcium 8.1 L
Vital Signs:
Vital Signs
Temp Pulse Resp BP Pulse Ox
98.4 F 80 16 143/78 95
02/25/25 07:25 02/25/25 07:25 02/25/25 07:25 02/25/25 07:25 02/25/25 07:25
I&O
02/24/25 02/25/25 02/26/25
06:59 06:59 06:59
Intake Total 1140 / 1140
Balance 1140 / 1140
[2025-02-25 13:06] VITALS: BMI 22.3
[2025-02-25] MEDS: TORADOL 10 MG IV (14:14)
--- NOTE | 2025-02-25 15:29 | CM ---
Chart reviewed and bilingual case manager met with patient and patient to return to home when stable, no needs.
Plan: Home when stable.
[2025-02-25 15:35] VITALS: BP 154/77
[2025-02-25] MEDS: LOVENOX 40 MG SC (18:05)
[2025-02-25 23:08] VITALS: BP 137/60
[2025-02-26] MEDS: TORADOL 10 MG IV (03:24)
[2025-02-26 07:40] VITALS: BP 163/81
--- NOTE | 2025-02-26 07:58 | W.PN.GS2 ---
Today's Communication / Plan
-
-- Clears, possible ADAT to fulls
-- Would continue low IVF depending on PO intake (difficult to assess as no I&O recorded)
Assessment / Plan
-
Patient is a 69 yo F p/w SBO secondary to dietary indiscretion in the setting of adhesive disease and potentially Crohn's related stricture
XR with persistent obstruction
SBFT 02/25 contrast rermains in mildly dilated sb after 4 hrs
KUB 02/25 contast all in colon and sb distention improved
AFVSS
No new labs
Clinical improvement with passage of flatus and stool. Radiographic improvement with passage of contrast into the colon. Given her mild persistent discomfort (which is similar to her presenting symptoms) we will continue on liquids for today.
Okay to advance to full liquids as tolerated throughout the course of the day.
Previous discussions on Crohns management, she is not interested in tx. Discussed the importance of screening c-scopes not only for Crohns but for colon cancer as well, she is not interested in getting a c-scope.
-- Clears, possible ADAT to fulls
-- Would continue low IVF depending on PO intake (difficult to assess as no I&O recorded)
-- OOB, minimize narcotics, correct lytes
-- Medical management as per primary team
Subjective Data
-
Date of Service: February 26, 2025
Mild epigastric discomfort which is in a similar location to her presenting symptoms. No nausea or vomiting. Passing flatus and BMs. Afebrile. Ambulating. Voiding.
Objective Data
-
Intake and Output
02/25/25 02/26/25 02/27/25
06:59 06:59 06:59
Intake Total 1140 / 1140
Balance 1140 / 1140
Intake:
Oral fluids 240 / 240
IV fluids (Total) 900 / 900
Other:
Number of approximated MODERATE 2 2
amounts of urine
Vital Signs
Temp Pulse Resp BP Pulse Ox
97.9 F 71 16 163/81 95
02/26/25 07:40 02/26/25 07:40 02/26/25 07:40 02/26/25 07:40 02/26/25 07:40
Lab Results
02/25/25 05:20
02/25/25 05:20
Calcium 8.1 mg/dl (8.4-10.2) L 02/25/25 05:20
Total Bilirubin 1.1 mg/dl (0.2-1.3) 02/21/25 20:31
AST 27 U/L (14-36) 02/21/25 20:31
ALT 26 U/L (0-35) 02/21/25 20:31
Alkaline Phosphatase 111 U/L (38-126) 02/21/25 20:31
Total Protein 7.3 g/dl (6.3-8.2) 02/21/25 20:31
Albumin 4.8 g/dl (3.5-5.0) 02/21/25 20:31
Physical Exam
-
Gen: NAD
Abd: soft, NT, mild distension (improved from 48 hours), non-peritoneal, prior incisions well healed
Patient has a vargas catheter: No
Patient has a central line: No
[2025-02-26] MEDS: NSS (PRESERVATIVE FREE) 10 ML IV (09:09)
[2025-02-26] MEDS: PROTONIX IV 40 MG IV (09:09)
[2025-02-26 12:03] LABS: Hematocrit 36.9 % (37.0-47.0); Hemoglobin 12.3 g/dL (12.0-16.0); Mean Corp Hgb Conc. 33.3 g/dL (33.0-37.0); Mean Corpuscular Hgb 31.1 pg (27.0-31.0); Mean Corpuscular Volume 93.2 fL (81.0-99.0); Mean Platelet Volume 9.9 fL (7.4-10.4); Platelet Count 244 10^3/uL (130-400); Red Blood Cell Count 3.96 10^6/uL (4.20-5.40); Red Cell Dist. Width 12.6 % (11.5-14.5); White Blood Cell Count 5.5 10^3/uL (4.8-10.8)
[2025-02-26 12:51] LABS: Blood Urea Nitrogen 11 mg/dl (7-17); Calcium 8.8 mg/dl (8.4-10.2); Carbon Dioxide 29 mmol/L (22-30); Chloride 105 mmol/L (98-107); Estimated Creatinine Clearance 52 ml/min; Glucose 214 mg/dl (70-99); Magnesium 2.1 mg/dl (1.6-2.3); Potassium 3.1 mmol/L (3.5-5.1); Sodium 139 mmol/L (135-145); eGFR > 60.00
--- NOTE | 2025-02-26 13:37 | W.PN.HOSP.TC ---
Addendum entered and electronically signed by Bailey Mcknight MD 02/26/25 13:39:
Hypokalemia-replace
Original Note:
Today's Communication/Plan
-
Had more bowel movements
Full liquid diet
If tolerating diet possible discharge tomorrow
Assessment / Plan
Assessment / Plan
69-year-old female with Abd pain , nausea and vomiting
CT dksq-ali-nqvsr-distended loops of small bowel in the left abdomen measuring up to 3.7 cm containing fecalized content and mild mesenteric fat stranding compatible with small bowel obstruction. Transition point in the central pelvis. Possibly
due to ideations. Decompressed loops of distal small bowel in the right lower quadrant. Small to moderate fat-containing umbilical hernia. Hepatic steatosis. Mildly distended gallbladder with no gallbladder wall thickening or biliary
dilatation. Increasing multiple cystic lesions throughout the pancreas including pancreatic head uncinate process, body and tail and probable mild dilatation of the main pancreatic duct. This may be related to main and sidebranch IPMN's suggest
correlation with MRCP. Subcentimeter bilateral renal cysts. No hydro nephrosis or calculi. Bladder is normal. Uterus and ovaries are unremarkable. Lung bases are clear.
Patient is awake alert pleasant
Cardiovascular system S1-S2 appreciated
Chest clear to auscultation
Abdomen soft -bowel sounds appreciated
Patient had bowel movements last night and this morning
# SBO
May be caused by Chron's , also has history of colon resection with ileal cecal anastomosis
CT abdomen and pelvis-dilated loops of the small bowel with transition point in the central pelvis.
X-ray 02/25/2025-reviewed by me-contrast has passed into the colon
Start full liquid diet
# Crohn's Disease
Diagnosed from small bowel resection after an episode of SBO
Patient had an episode of small bowel obstruction in 2018 was admitted here. During that episode she was advised to follow-up with Dr. Elliott to get MR enterography and see if she needed any maintenance therapy.
Not on any treatment for Chron's by patient preference as she thinks her Crohn's is not active
I could not find any later colonoscopies since 2011 she confirms that she has not had one since then-
Discussed with the patient regarding high risk for malignancy with IBD.
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 She is afraid of ever being put in a detention when she gets older.
Again advised to seek treatment for Crohn's disease and see GI as outpatient
# HTN- Not on meds as OP
Watch BP and start meds as needed
On PRN Hydralazine now
# Multiple pancreatic cystic lesions-needs further workup with MRI/MRCP and GI follow-up, Pt and daughter aware.
# Ex-smoker
# DVT Prophylaxis- SCDS and Lovenox
# Full CODE
Part of this note was created using voice recognition system. Occasional wrong word or��sound alike� substitutions may have inadvertently occurred due to the inherent limitations of voice recognition software. If noted kindly bring it to my
attention for correction.
Anticipated Discharge: Within 24 hours
Subjective/Interval History
-
Date of Service: February 26, 2025
Objective Data
-
Labs:
Laboratory Results
02/26/25
11:31
WBC 5.5
Hgb 12.3
Hct 36.9 L
Plt Count 244 D
Sodium 139
Potassium 3.1 L
Chloride 105
Carbon Dioxide 29
BUN 11
Creatinine 0.8
Glucose 214 H
Calcium 8.8
Vital Signs:
Vital Signs
Temp Pulse Resp BP Pulse Ox
97.9 F 71 16 163/81 95
02/26/25 07:40 02/26/25 07:40 02/26/25 07:40 02/26/25 07:40 02/26/25 07:40
I&O
02/25/25 02/26/25 02/27/25
06:59 06:59 06:59
Intake Total 1140 / 1140
Balance 1140 / 1140
--- NOTE | 2025-02-26 15:15 | CM ---
Chart reviewed and patient is for discharge to home when stable.
Plan: Home when stable.
[2025-02-26] MEDS: KCL 40 MEQ PO (15:29)
[2025-02-26 15:30] VITALS: BP 133/79
[2025-02-26] MEDS: LOVENOX 40 MG SC (18:00)
--- NOTE | 2025-02-26 18:09 | PTCARENOTE ---
pt advanced to FLD, tolerating well, no N/V or pain reported this shift. Walked around the unit throughout shift.
[2025-02-26 23:27] VITALS: BP 148/77
[2025-02-27 06:49] LABS: Blood Urea Nitrogen 12 mg/dl (7-17); Calcium 8.8 mg/dl (8.4-10.2); Carbon Dioxide 28 mmol/L (22-30); Chloride 108 mmol/L (98-107); Estimated Creatinine Clearance 70 ml/min; Glucose 116 mg/dl (70-99); Potassium 3.9 mmol/L (3.5-5.1); Sodium 141 mmol/L (135-145); eGFR > 60.00
[2025-02-27 07:00] VITALS: BP 138/72
[2025-02-27] MEDS: PROTONIX IV 40 MG IV (08:04)
[2025-02-27] MEDS: NSS (PRESERVATIVE FREE) 10 ML IV (08:04)
--- NOTE | 2025-02-27 09:29 | W.PN.GS2 ---
Addendum entered and electronically signed by Mario Hernandez MD 02/27/25 12:03:
I saw and examined the patient independently.
The [employer]'s note was reviewed and I agree with the note, assessment and plan except where noted below.
Comment: This is a 69-year-old female who presents with a small bowel obstruction secondary to dietary indiscretion in the setting of known dense adhesive disease and potentially a Crohn's related stricture. Clinically and radiographically improved.
Advance to low residue diet. If she tolerates this okay to DC from a surgical perspective.
She can follow-up with our group at her discretion.
Original Note:
Today's Communication / Plan
-
LRD
Assessment / Plan
-
Patient is a 69 yo F p/w SBO secondary to dietary indiscretion in the setting of adhesive disease and potentially Crohn's related stricture
XR with persistent obstruction
SBFT 5/20 contrast remains in mildly dilated sb after 4 hrs
KUB 5/21 contrast all in colon and sb distention improved
AFVSS
No new labs
Clinical improvement with passage of flatus and stool. Radiographic improvement with passage of contrast into the colon.
Previous discussions on Crohns management, she is not interested in tx. Discussed the importance of screening c-scopes not only for Crohns but for colon cancer as well, she is not interested in getting a c-scope.
-- Advance to low residue diet
-- OOB, minimize narcotics
-- Medical management as per primary team
Ok for d/c from surgical standpoint once tolerating low residue diet
Subjective Data
-
Date of Service: February 27, 2025
Patient seen and examined at bedside with Dr. Hernandez. Still with a little abdominal soreness but improving. Passing flatus and multiple stools. Denies n/v. Tolerating liquids.
Objective Data
-
Intake and Output
02/26/25 02/27/25 02/28/25
06:59 06:59 06:59
Intake Total 840 / 840
Balance 840 / 840
Intake:
Oral fluids 840 / 840
Other:
Number of approximated MODERATE 2
amounts of urine
Number of approximated LARGE 2
amounts of urine
How many times incontinent 4
MODERATE amount urine
Vital Signs
Temp Pulse Resp BP Pulse Ox
97.9 F 72 17 138/72 95
02/27/25 07:00 02/27/25 07:00 02/27/25 07:00 02/27/25 07:00 02/27/25 07:00
Lab Results
02/26/25 11:31
02/27/25 06:02
Calcium 8.8 mg/dl (8.4-10.2) 02/27/25 06:02
Magnesium 2.1 mg/dl (1.6-2.3) 02/26/25 11:31
Total Bilirubin 1.1 mg/dl (0.2-1.3) 02/21/25 20:31
AST 27 U/L (14-36) 02/21/25 20:31
ALT 26 U/L (0-35) 02/21/25 20:31
Alkaline Phosphatase 111 U/L (38-126) 02/21/25 20:31
Total Protein 7.3 g/dl (6.3-8.2) 02/21/25 20:31
Albumin 4.8 g/dl (3.5-5.0) 02/21/25 20:31
Physical Exam
-
Gen: NAD
Abd: soft, very minimal to lower abd, ND, non-peritoneal, prior incisions well healed
Patient has a vargas catheter: No
Patient has a central line: No
--- NOTE | 2025-02-27 11:46 | W.PN.HOSP.TC ---
Addendum entered and electronically signed by Bailey Mcknight MD 02/27/25 15:49:
More than 30 minutes spent in discharge including
Final examination of the patient
Summarizing hospital stay
Instructions for continuing care to all relevant caregivers
Preparation of discharge records, prescriptions, and referral forms
Total time spent (in minutes): 32 min
Original Note:
Today's Communication/Plan
-
Discharge after lunch
Assessment / Plan
Assessment / Plan
69-year-old female with Abd pain , nausea and vomiting
CT kfta-aod-imsea-distended loops of small bowel in the left abdomen measuring up to 3.7 cm containing fecalized content and mild mesenteric fat stranding compatible with small bowel obstruction. Transition point in the central pelvis. Possibly
due to ideations. Decompressed loops of distal small bowel in the right lower quadrant. Small to moderate fat-containing umbilical hernia. Hepatic steatosis. Mildly distended gallbladder with no gallbladder wall thickening or biliary
dilatation. Increasing multiple cystic lesions throughout the pancreas including pancreatic head uncinate process, body and tail and probable mild dilatation of the main pancreatic duct. This may be related to main and sidebranch IPMN's suggest
correlation with MRCP. Subcentimeter bilateral renal cysts. No hydro nephrosis or calculi. Bladder is normal. Uterus and ovaries are unremarkable. Lung bases are clear.
Patient is awake alert pleasant
Cardiovascular system S1-S2 appreciated
Chest clear to auscultation
Abdomen soft -bowel sounds appreciated
# SBO
May be caused by Chron's , also has history of colon resection with ileal cecal anastomosis
CT abdomen and pelvis-dilated loops of the small bowel with transition point in the central pelvis.
X-ray 02/25/2025-reviewed by me-contrast has passed into the colon
LRD started. Seems to be tolerating.
# Crohn's Disease
Diagnosed from small bowel resection after an episode of SBO
Patient had an episode of small bowel obstruction in 2018 was admitted here. During that episode she was advised to follow-up with Dr. Elliott to get MR enterography and see if she needed any maintenance therapy.
Not on any treatment for Chron's by patient preference as she thinks her Crohn's is not active
I could not find any later colonoscopies since 2011 she confirms that she has not had one since then-
Discussed with the patient regarding high risk for malignancy with IBD.
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 She is afraid of ever being put in a mcc when she gets older.
Again advised to seek treatment for Crohn's disease and see GI as outpatient
# HTN- Not on meds as OP
BP stable.
OP Monitoring.
# Multiple pancreatic cystic lesions-needs further workup with MRI/MRCP and GI follow-up, Pt and daughter aware.
# Ex-smoker
# DVT Prophylaxis- SCDS and Lovenox
# Full CODE
D/W RN
Part of this note was created using voice recognition system. Occasional wrong word or��sound alike� substitutions may have inadvertently occurred due to the inherent limitations of voice recognition software. If noted kindly bring it to my
attention for correction.
Anticipated Discharge: Today
Subjective/Interval History
-
Date of Service: February 27, 2025
Objective Data
-
Labs:
Laboratory Results
02/27/25
06:02
Sodium 141
Potassium 3.9 D
Chloride 108 H
Carbon Dioxide 28
BUN 12
Creatinine 0.6
Glucose 116 H
Calcium 8.8
Vital Signs:
Vital Signs
Temp Pulse Resp BP Pulse Ox
97.9 F 72 17 138/72 95
02/27/25 07:00 02/27/25 07:00 02/27/25 07:00 02/27/25 07:00 02/27/25 07:00
I&O
02/26/25 02/27/25 02/28/25
06:59 06:59 06:59
Intake Total 840 / 840
Balance 840 / 840
--- NOTE | 2025-02-27 13:18 | W.DS.TRANS ---
Addendum entered and electronically signed by Bailey Mcknight MD 02/27/25 15:51:
Dictation- [id number]
Original Note:
DC Summary - [facility] Therapist
-
Discharge Instructions:
Discharge Diagnosis/Procedures Small bowel obstruction
Hypokalemia
Crohn's disease
Multiple pancreatic cystic lesions
Diet Low Fiber
Activity As tolerated
Driving Restrictions As prior to admission
Instructions:
Stand-Alone Forms:
Changes to Home Medications: No
Discharge Medications:
DC Medications w/original date entered in [employer]
No Meds [No Current Medications] 02/22/25
Home Medication Changes
Pending Results: No
--- NOTE | 2025-02-27 14:10 | CM ---
Patient stable for d/c.
IMM verbally reviewed w/ patient.
Daughter will transport
No CM needs identified at this time
Plan: Home, no needs
[2025-02-27 14:25] VITALS: BP 158/85
== END 2025-02-27 14:58 | disposition home or self-care (01) | DRG 386 ==
LOC: 2 NORTH 02:20
PROVIDERS: Student in an Organized Health Care Education/Training Program; ADMITTING PHYSICIAN Hospitalist; ATTENDING PHYSICIAN Hospitalist; CONSULT PHYSICIAN Surgery; EMERGENCY PHYSICIAN Student in an Organized Health Care Education/Training Program
DX: K50.912 Crohn's disease, unspecified, with intestinal obstruction (principal); K86.2 Cyst of pancreas; I10 Essential (primary) hypertension; K66.0 Peritoneal adhesions (postprocedural) (postinfection); N80.9 Endometriosis, unspecified; D72.819 Decreased white blood cell count, unspecified; E87.6 Hypokalemia; K76.0 Fatty (change of) liver, not elsewhere classified; Z87.19 Personal history of other diseases of the digestive system; Z90.49 Acquired absence of other specified parts of digestive tract; Z87.891 Personal history of nicotine dependence
CPT/HCPCS: 74018; 74019; 74177; 74250; 80048; 80053; 83605; 83690; 83735; 85025; 85027; 86140; 93005; 96361; 96374; 96375; 99285; Q9967